=== PATIENT | female | born 1995 | race Hispanic/Latino ===

== ENCOUNTER → 2017-11-08 | Day surgery (SDC) | payer SELFPAY ==
[~2017-11-08] MED LIST: BACITRACIN 50,000 UNIT VIAL ONE; BIOTIN2500 MCG PO; BUPIVACAINE HCL 0.5% INJ 30 ML VIAL INJ ONE; CEFAZOLIN SOD 1 GM/NS 50ML 50 ML IV ONE; DEXAMETHASONE SOD PHOS INJ 4 MG/ML VIAL ONE; FENTANYL CITRATE/PF 100MCG/2 ML INJ ONE; KETOROLAC TROMETHAMINE 30 MG/ML VIAL ONE; LIDOCAINE HCL 2% LOCAL INJ 5 ML SDV VIAL INJ ONE; MIDAZOLAM HCL 2 MG/2 ML VIAL ONE; MUPIROCIN 2% OINT 22 GM TUBE ONE; ONDANSETRON HCL INJ 2 MG/ML VIAL ONE; PLAQUENIL200 MG PO; PROPOFOL IV EMULSION 10 MG/ML 20 ML VIAL ONE; SEVOFLURANE INHAL SOLN 250 ML PEN BTL ONE; VITAMIN D1000 UNI1 PO; VITAMIN E100 UNI1 PO
--- NOTE | 2017-11-08 16:42 | Operative Report ---
DATE OF PROCEDURE: November 08, 2017 PREOPERATIVE DIAGNOSIS: Fracture of right ring finger middle phalanx intra-articular, displaced. POSTOPERATIVE DIAGNOSIS: Fracture of right ring finger middle phalanx intra-articular, displaced. PROCEDURE PERFORMED: Open reduction of right ring finger middle phalanx fracture and internal fixation. ANESTHESIA: General. HISTORY: The patient is a 22-year-old right-hand dominant female who sustained a closed intra-articular displaced fracture of the right ring finger middle phalanx base. The risks, benefits, and alternatives of the treatment were discussed with the patient. She was prepared to undergo the procedures outlined. DETAILS OF PROCEDURE: Patient was marked preoperatively in the holding area. She was brought to the operating theater. After the induction of adequate general anesthesia, she was prepped and draped in the supine position. A timeout was performed. A curvilinear incision was marked on the dorsal aspect of the right ring finger about the PIP joint. The right upper extremity was exsanguinated and the tourniquet was inflated to a pressure of 250 mmHg. The incision was made through the skin and subcutaneous tissue. All venous tributaries were controlled with the bipolar cautery. The flaps were then elevated off the extensor tendon mechanism. The PIP joint was incised longitudinally reflecting the radial and ulnar halves of the extensor tendon mechanism. Small amount of joint hematoma was encountered and this was evacuated and irrigated free. The fracture fragment on the dorsal aspect of the base of the middle phalanx was freely mobile, and using the fluoroscope, it was reduced and then held in reduction using bone reduction forceps. Verification of the reduction was performed in 3 planes and the articular surface was noted to be congruous and completely reduced. At this point, a 1.0 mm drill was used to place drill hole across both bony fragments at the base of the middle phalanx. The depth was measured and measured 10 mm. A 10 x 1.3 mm screw was then placed across the fracture fragments under direct fluoroscopic view. Tightening of the screw gave good compression across the fracture site with elimination of the radiolucency on the fluoroscope. At this point, the joint was copiously irrigated with bacteriostatic saline. The extensor tendon mechanism was then closed with 4-0 Vicryl in an interrupted fashion. The wound was irrigated again and the skin was closed with 5-0 nylon in an interrupted horizontal mattress fashion. Marcaine field block was performed at the base of the right ring finger. Tourniquet was deflated. All the fingers pinked up nicely and a sterile bulky conforming bandage was applied to the right ring finger. A dorsally based foam aluminum splint to maintain the PIP joint in approximately 40 degrees of flexion was added to the dressing. Patient tolerated the procedure well, was brought to recovery room in satisfactory condition, and discharged with a postoperative instruction sheet as well as a followup appointment. Job#: [id number]
== END | disposition home or self-care (01) ==
LOC: OR 06:10
PROVIDERS: ATTEND Plastic Surgery
DX: S62.624A Displaced fracture of middle phalanx of right ring finger, initial encounter for closed fracture (principal); K25.9 Gastric ulcer, unspecified as acute or chronic, without hemorrhage or perforation; K21.9 Gastro-esophageal reflux disease without esophagitis; M32.9 Systemic lupus erythematosus, unspecified; X58.XXXA Exposure to other specified factors, initial encounter
CPT/HCPCS: 26746; 81025; J1100; J1885; J2001; J2250; J2405